=== PATIENT | male | born 1985 | race African-American/Black ===

== ENCOUNTER 2017-01-17 16:07 | Emergency (ER) | payer BC ==
[2017-01-17 16:30] VITALS: BP 116/73
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
[2017-01-17] MEDS ORDERED: Rivaroxaban 10 MG Tab PO STA (20:50)
--- NOTE | 2017-01-19 06:53 | US ---
Bilateral lower extremity deep venous ultrasound: Duplex and color flow imaging was obtained of the right and left common femoral, proximal greater saphenous, superficial femoral, popliteal, posterior tibial and peroneal veins. Findings: Small lymph nodes are noted within the inner left thigh which are felt to be incidental. Partially occluding clot noted within the left popliteal vein. Uncertain if this is acute or chronic although I believe the age is more acute as it is not echogenic. Other veins show normal phasic flow, augmentation and compression. Impression: 1. Findings suspicious for nonocclusive clot within the left popliteal vein. Recommend follow-up study of the left lower extremity in 48 hours to make sure this finding is stable and does not increase in size. 2. Incidental lymph nodes. No other findings of venous thrombosis is seen. Diagnostic code #3 I agree with preliminary report issued by [facility] (preliminary report dictated on 01/17/17, 9:06 PM Central Time)
== END 2017-01-17 21:20 | disposition home or self-care (01) ==
LOC: JD.ED 16:07
DX: I82.432 Acute embolism and thrombosis of left popliteal vein (principal); F17.210 Nicotine dependence, cigarettes, uncomplicated
CPT/HCPCS: 93971; 99284; A9270

== ENCOUNTER 2024-05-07 20:36 | Emergency (ER) | payer BC ==
[2024-05-07 20:56] LABS: BASOPHILS ABSOLUTE AUTO 0.1 K/mm3 (0.0-0.2); BASOPHILS PERCENT AUTO 0.8 % (0.0-1.0); EOSINOPHILS ABSOLUTE AUTO 0.3 K/mm3 (0.0-0.4); HEMATOCRIT 42.4 % (42.0-52.0); HEMOGLOBIN 14.4 gm/dl (14.0-18.0); IMMATURE GRAN ABSOLUTE AUTO 0.04 K/mm3 (0.00-0.05); IMMATURE GRAN PERCENT AUTO 0.3 % (0.0-0.4); LYMPHOCYTES PERCENT AUTO 23.7 % (24.0-44.0); MEAN CORPUSCULAR HEMOGLOBIN 30.5 pg (28.0-32.0); MEAN CORPUSCULAR VOLUME 89.8 fl (83.0-99.0); MEAN PLATELET VOLUME 9.5 fl (9.4-12.4); MONOCYTES ABSOLUTE AUTO 0.8 K/mm3 (0.0-0.8); MONOCYTES PERCENT AUTO 6.5 % (0.0-8.0); NEUTROPHILS ABSOLUTE AUTO 8.3 K/mm3 (1.8-7.7); NEUTROPHILS PERCENT AUTO 66.7 % (41.0-71.0); PLATELET COUNT,PLT 276 K/mm3 (150-400); RED BLOOD CELL COUNT 4.72 M/mm3 (4.52-5.90); WHITE BLOOD CELL COUNT,WBC 12.51 K/mm3 (3.9-11.3)
[2024-05-07] MEDS: Albuterol/Ipratropium 3.0-0.5 MG/3 ML Neb Soln NEB ONE (20:56)
[2024-05-07 21:08] VITALS: BP 132/78; PULSE 77
[2024-05-07 21:19] LABS: ALBUMIN 3.9 g/dl (3.4-5.0); ANION GAP 15.8 (5-15); BILIRUBIN TOTAL 0.3 mg/dL (0.2-1.0); BUN/CREATININE RATIO 14.5 (14-18); CALCIUM 9.2 mg/dL (8.5-10.1); CREATININE 1.1 mg/dL (0.7-1.3); EST CRCL DRUG DOSING (CG) 100.88 mL/min; POTASSIUM,K 3.8 mEq/L (3.5-5.1); PROTEIN TOTAL,TP 7.8 g/dl (6.4-8.2)
[2024-05-07] MEDS: LORazepam 1 MG Tab PO ONE (21:23)
[2024-05-07] MEDS: Sodium Chloride 0.9% 10 ML Syringe FLUSH PRN (21:23)
[2024-05-07] MEDS: Lactated Ringers 1,000 ML IV SCH (21:23)
[2024-05-07] MEDS: hydrOXYzine HCl 25 MG Tab PO ONE (22:06)
== END 2024-05-07 22:12 | disposition home or self-care (01) ==
LOC: JD.ED 20:36
DX: F41.9 Anxiety disorder, unspecified (principal); R06.02 Shortness of breath
CPT/HCPCS: 36415; 71045; 80053; 85025; 85379; 93005; 94640; 96360; 99285; A9270; J3490; J7120; J7620-GY

== ENCOUNTER 2025-09-21 01:50 | Emergency (ER) | payer BC ==
[2025-09-21] MEDS ORDERED: Sodium Chloride 0.9% 10 ML Syringe FLUSH PRN (03:27)
[2025-09-21 03:46] LABS: BASOPHILS ABSOLUTE AUTO 0.1 K/mm3 (0.0-0.2); BASOPHILS PERCENT AUTO 0.7 % (0.0-1.0); EOSINOPHILS ABSOLUTE AUTO 0.1 K/mm3 (0.0-0.4); EOSINOPHILS PERCENT AUTO 0.7 % (0.0-6.0); IMMATURE GRAN ABSOLUTE AUTO 0.13 K/mm3 (0.00-0.05); IMMATURE GRAN PERCENT AUTO 1.1 % (0.0-0.4); LYMPHOCYTES ABSOLUTE AUTO 1.7 K/mm3 (1.0-4.8); LYMPHOCYTES PERCENT AUTO 13.6 % (24.0-44.0); MEAN PLATELET VOLUME 9.8 fl (9.4-12.4); MONOCYTES ABSOLUTE AUTO 0.6 K/mm3 (0.0-0.8); MONOCYTES PERCENT AUTO 5.3 % (0.0-8.0); NEUTROPHILS ABSOLUTE AUTO 9.6 K/mm3 (1.8-7.7); NEUTROPHILS PERCENT AUTO 78.6 % (41.0-71.0); NRBC ABSOLUTE 0.00 (0.00-0.02); NRBC PERCENT 0.0 % (0.0-0.2); PLATELET COUNT,PLT 227 K/mm3 (150-400); RED BLOOD CELL COUNT 4.50 M/mm3 (4.52-5.90); WHITE BLOOD CELL COUNT,WBC 12.19 K/mm3 (3.9-11.3)
[2025-09-21] MEDS: Diphtheria,Pertussis(Acell),Tetanus Vaccine 0.5 ML Syringe IM ONE (04:03)
[2025-09-21 04:05] LABS: INR 0.97
[2025-09-21 04:06] LABS: PTT,PARTIAL THROMBOPLSTIN TIME 24.6 SECONDS (21.7-31.4)
[2025-09-21 04:16] LABS: A/G RATIO 0.8 (1-2); BILIRUBIN TOTAL 0.6 mg/dL (0.2-1.0); BLOOD UREA NITROGEN,BUN 12 mg/dL (7-18); CARBON DIOXIDE,CO2 24 mEq/L (21-32); CREATININE 0.7 mg/dL (0.7-1.3); EST CRCL DRUG DOSING (CG) 150.89 mL/min; ESTIMATED GFR 118 mL/min (>60); ETHANOL BLOOD MEDICAL 0.28 gm% (0.00)
[2025-09-21 04:46] VITALS: BP 135/80; PULSE 82
[2025-09-21 04:54] LABS: CHLORIDE,CL 103 mEq/L (98-107); SODIUM,NA 139 mEq/L (136-145)
[2025-09-21 05:14] LABS: CREATINE KINASE,CK 371 U/L (39-308); GLUCOSE RANDOM 103 mg/dL (70-99); PROTEIN TOTAL,TP 7.7 g/dl (6.4-8.2)
== END 2025-09-21 04:18 ==
LOC: JD.ED 01:50
DX: S06.5X0A Traumatic subdural hemorrhage without loss of consciousness, initial encounter (principal); S06.6X0A Traumatic subarachnoid hemorrhage without loss of consciousness, initial encounter; S01.01XA Laceration without foreign body of scalp, initial encounter; R74.8 Abnormal levels of other serum enzymes; Y04.0XXA Assault by unarmed brawl or fight, initial encounter; Z23 Encounter for immunization
CPT/HCPCS: 12001; 36415; 70450; 70450-26; 72125; 72125-26; 80053; 80307; 82550; 83690; 83735; 85025; 85610; 85730; 90471; 90715; 99285-25